=== PATIENT | female | born 1975 | race Caucasian/White ===

== ENCOUNTER → 2016-09-24 | Outpatient (CLI) | payer BC ==
[~2016-09-24] MED LIST: ASPI81TA28 PO; ATOR-26 PO; CLIN300C2 PO; HYDR12.55 PO; INSPMPNVLG; LEVO125T4 PO; MULT-506 PO; OXYC-57 PO; PRLSR20 PO; RIVA1TAB4 PO
[2016-09-24 13:26] LABS: BASO % 0.3 %; BASO ABS # 0.03 K/uL (0-0.2); EOS % 0.9 %; HEMATOCRIT 28.5 % (37-47); IG% 0.2 %; LYMPH % 30.4 %; LYMPH ABS # 3.03 K/uL (1.2-3.4); MEAN CELL VOLUME 68.2 fL (80-100); MEAN CORPUSCULAR HEMOGLOBIN 21.3 pg (25-34); MEAN CORPUSCULAR HGB CONC 31.2 g/dl (32-36); MEAN PLATELET VOLUME 8.9 fL (7.4-10.4); MONO % 6.3 %; NEUT % 61.9 %; PLATELET COUNT 764 K/uL (130-400); RED BLOOD COUNT 4.18 M/uL (4.2-5.4); WHITE BLOOD COUNT 9.96 K/uL (4.8-10.8)
[2016-09-24 13:41] LABS: FERRITIN 2.2 ng/ml (8.0-388.0)
[2016-09-24 14:26] LABS: COMPLETE YES; HYPOCHROMIA PRESENT; MICROCYTOSIS PRESENT; TARGET CELLS 1+
== END | disposition home or self-care (01) ==
LOC: C.LABMFLN 08:01
PROVIDERS: ATTEND Family Medicine
DX: E10.9 Type 1 diabetes mellitus without complications (principal); I73.9 Peripheral vascular disease, unspecified; K21.9 Gastro-esophageal reflux disease without esophagitis; R63.4 Abnormal weight loss; D64.9 Anemia, unspecified; Z79.01 Long term (current) use of anticoagulants